=== PATIENT | male | born 1985 | race Hispanic/Latino ===

== ENCOUNTER 2022-05-10 12:10 | Emergency (ER) | payer SELFPAY ==
[~2022-05-10] VITALS: Ht 177.8 cm; Wt 102.1 kg
[~2022-05-10 12:10] MED LIST: ACETAMINOPHEN325 M1 PO; LINZESS PO; NAPROXEN250 MG PO
[2022-05-10] MEDS ORDERED: KETOROLAC TROMETHAMINE 60 MG/2 ML VIAL IM ONE (13:30)
== END 2022-05-10 14:50 | disposition home or self-care (01) ==
LOC: ER 12:31
DX: R07.89 Other chest pain (principal); Z20.822 Contact with and (suspected) exposure to COVID-19; Z87.19 Personal history of other diseases of the digestive system
CPT/HCPCS: 0223U; 36415; 71045; 87400; 93005; 99283; J1885